=== PATIENT | female | born 1995 | race Two or more races ===

== ENCOUNTER 2024-10-01 12:02 | Emergency (ER) | payer MEDICAID, SELFPAY ==
[2024-10-01 13:20] VITALS: BP 119/85; PULSE 88; RESP 16; TEMP 36.8; O2SAT 99; BMI 37.8
--- NOTE | 2024-10-01 13:32 | PD.EDUPEX ---
Upper Extremity Injury RME/HPI General Chief Complaint: Extremity Injury, Upper Stated Complaint: RIGHT ARM INJURY POST FALL LAST NIGHT AFTER ETOH Time Seen by Provider: 10/01/24 14:50 Arrival date/time: 10/01/24 12:02 28-year-old female with no past medical history presents to the ED with a complaint of right forearm, wrist, and hand pain, swelling and decreased movement secondary to a ground-level fall last night. EtOH involved. She denies any other injuries at this time. She denies striking head or having any loss of consciousness. Mode of arrival: ambulatory Limitations: no limitations RME / HPI RME / HPI narrative: 28-year-old female with no past medical history presents to the ED with a complaint of right forearm, wrist, and hand pain secondary to a ground-level fall last night. EtOH involved. She denies any other injuries at this time. X-rays ordered. I have greeted and performed a focused initial assessment of this patient. A comprehensive ED assessment and evaluation of the patient, analysis of all test results, and completion of the medical decision making process will be conducted by additional ED providers. complaint: injury to: right, forearm, wrist and hand Other Extremity Injury: Right: hand, wrist and forearm Other injuries: none Relieving factors: none Exacerbating factors: movement of extremity Context: fall Related Data Previous Rx's ?Medication ?Instructions ?Recorded ibuprofen 600 mg tablet 600 mg PO TID 5 days #15 tabs 10/01/24 Allergies Allergy/AdvReac Type Severity Reaction Status Date / Time No Known Allergies Allergy Verified 10/01/24 12:06 Past Medical History Past Medical History CARDIAC: Negative Congestive Heart Failure RESPIRATORY: Negative Chronic Obstructive Pulmonary Disease (COPD) GENITOURINARY: Negative Renal Disease ENDOCRINE: Negative Diabetes Mellitus Type 1 or Diabetes Mellitus Type 2 Social History SMOKING STATUS: Current some day smoker ED Exam General Limitations: Present no limitations General appearance: Present alert and in no apparent distress Head Head exam: Present atraumatic and normocephalic Eye Eye exam: Present normal appearance; Absent scleral icterus or conjunctival injection ENT ENT exam: Present normal exam Neck Neck exam: Present normal inspection Chest Chest inspection: Present normal inspection Respiratory Respiratory exam: Absent respiratory distress Cardiovascular Cardiovascular exam: Present regular rate and normal rhythm Abdominal Exam Abdominal exam: Absent distention Extremities Exam Extremities exam: Present tenderness Expanded Upper Extremity Exam Shoulder exam: Present normal inspection and full ROM; Absent tenderness or swelling Arm exam: Present normal inspection and full ROM; Absent tenderness or swelling Elbow exam: Present normal inspection and full ROM; Absent tenderness or swelling Forearm/Wrist exam: Present tenderness, swelling and ecchymosis Hand exam: Present tenderness, swelling and ecchymosis Neuromotor exam: Normal wrist extension, thumb opposition, thumb IP flexion and thumb adduction Neurosensory exam: Normal radial nerve and ulnar nerve Vascular exam: Normal radial pulse Back Exam Back exam: Present full ROM Neurological Exam Neurological exam: Present alert and oriented X3 Psychiatric Psychiatric exam: Present normal affect and normal mood Skin Skin exam: Present warm, dry and intact Course Orders Category Date Time Status splint [Splint / Immobilizer] STAT Care 10/01/24 17:23 Active XR forearm RT 2V Stat Exams 10/01/24 13:33 Completed XR hand comp RT min 3V Stat Exams 10/01/24 13:33 Completed XR hand comp RT min 3V Stat Exams 10/01/24 14:06 Ordered XR wrist comp RT min 3V Stat Exams 10/01/24 13:33 Completed XR wrist comp RT min 3V Stat Exams 10/01/24 14:06 Ordered Acetaminophen Tab [Tylenol Tab] Med 10/01/24 17:27 Discontinued 650 mg PO X1 ONE Ibuprofen Tab [Motrin Tab] Med 10/01/24 13:31 Discontinued 600 mg PO X1 ONE Vital Signs Vital signs: Vital Signs Temperature 98.3 F 10/01/24 13:20 Pulse Rate 88 10/01/24 13:20 Respiratory Rate 16 10/01/24 13:20 Blood Pressure 119/85 H 10/01/24 13:20 Pulse Oximetry (%) 99 10/01/24 13:20 Oxygen Delivery Method Room Air 10/01/24 13:20 Extremity Injury Medications / Prescriptions Medication administrations:: Medication Administration History Discontinued Medications Acetaminophen (Acetaminophen 325 Mg Tablet) 650 mg PO X1 ONE Stop: 10/01/24 17:28 Last Admin: 10/01/24 17:32 Dose: 650 mg Documented By: BRYNN Ibuprofen (Ibuprofen Tab 600 Mg Tablet) 600 mg PO X1 ONE Stop: 10/01/24 13:32 Last Admin: 10/01/24 13:34 Dose: 600 mg Documented By: ANNA Discharge Plan Plan Patient Disposition: HOME (Self Care) Disposition Comment: Stable Prescriptions/Referrals Prescriptions/Med Rec: New ibuprofen 600 mg tablet 600 mg PO TID 5 Days Qty: 15 0RF Referrals: Melanie Barrett, SOCIAL MEDIA DEVELOPER [Primary Care Provider] - In 1 week Problem List Clinical Impression: Fracture of wrist Impression comment: Intra articular, comminuted fracture of the distal radius. Patient/Caregiver Discharge Instructions Discharge Activity: other Other Activity Instructions:: Wear the splint at all times until you are seen by the sports marketing specialist. Education Materials: Treating Wrist Fractures, ED Fracture, Wrist, General Additional Instructions: Follow-up with your primary care physician at [facility] in 24 to 48 hours for a referral to the sports marketing specialist. Wear the splint at all times, do not remove it until you are seen by the sports marketing specialist. You may need surgery on the wrist for definitive treatment. Print Language: Syriac Stand Alone Forms: Gabriela Award Info., Patient Portal Info Letter PA/SENIOR C WEB DEVELOPER Supervising Physician PA/SENIOR C WEB DEVELOPER Supervising Physician: Dr Mosie
--- NOTE | 2024-10-01 13:33 | XR_ITS ---
Examination: Hand, right Technique: Hand AP, oblique, lateral 3 views Date and time of exam: October 01, 2024 at 1348 hrs. Indications: Patient fell last night with injury to the hand, right hand pain Findings: Acute comminuted fractures intra-articular distal radial metaphysis No significant displacement Old deformity base fifth metacarpal Impression: Acute comminuted intra-articular fractures distal radial metaphysis
--- NOTE | 2024-10-01 13:33 | XR_ITS ---
Examination: Forearm, right, 2 views. Technique: Forearm, AP, lateral 2 views Date and time of exam: October 01, 2024 1358 hrs. Indications: Patient fell last night with injury to the forearm, forearm pain. Findings: Acute comminuted intra-articular fracture distal radial metaphysis No significant displacement Impression: Acute comminuted intra-articular fracture distal radial metaphysis
--- NOTE | 2024-10-01 13:33 | XR_ITS ---
Examination: Wrist, right 3 views Technique: Wrist AP, oblique, lateral 3 views Date and time of exam: October 01, 2024 1538 hrs. Indications: Patient fell last night with injury to the wrist, wrist pain. Findings: Acute comminuted intra-articular fracture distal radial metaphysis No significant displacement No dislocation Impression: Acute comminuted intra-articular fractures distal radial metaphysis
[2024-10-01] MEDS: IBUPROFEN TAB 600 MG TABLET PO (13:34)
[2024-10-01] MEDS: ACETAMINOPHEN 325 MG TABLET 650 MG PO (17:32)
== END 2024-10-01 17:57 | disposition home or self-care (01) ==
PROVIDERS: Emergency Provider Emergency Medicine; PCP Nurse Practitioner Women's Health
DX: S52.571A Other intraarticular fracture of lower end of right radius, initial encounter for closed fracture (principal); W19.XXXA Unspecified fall, initial encounter
CPT/HCPCS: 73090; 73110; 73130; 99283; A9270